=== PATIENT | male | born 1980 | race Caucasian/White ===

== ENCOUNTER 2024-10-06 10:52 | Emergency (ER) | payer OTHER, SELFPAY ==
--- OUTSIDE RECORDS SUMMARY | 2024-10-06 10:55 | XMS_ITS | Clinical Summary ---
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 Medications mirtazapine (REMERON) 15 mg tabletIndicatio ns:Anxiety and depression Take 1 Tablet (15 mg) by mouth at bedtime. 90 Tablet 1 4 Active sertraline (ZOLOFT) 100 mg tabletIndicatio ns:Anxiety and depression Take 1 Tablet (100 mg) by mouth once daily in the morning. 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 11/16/2014 07/02/2022 Insomnia 11/16/2014 07/02/2022 Marital stress 10/14/2014 06/22/2016 Rectal bleeding 04/10/2013 07/02/2022 Overview (04/10/2013): Colonoscopy 03/2013 normal repeat at age 49 Encounters Date Type Department Care Team Description 09/02/2024 3:05 PM CDT Office Visit [facility] [address] [place] [address] Robbie Villatoro MD Physical (43 Year Old ) 09/02/2024 Travel from Last 3 Months Immunizations Immunization Administration Dates Next Due COVID-19 vaccine (extraTKT NTech 30mcg/0.3mL) PFMDV 04/13/2021 Influenza, High-dose Inactivated 02/06/2014 Influenza, IIV4 04/13/2021, 0,02/01/2014,2012 Tdap 07/02/2022,02/09/2012 Family History Medical History Relation Name Comments Genetic Child 3 out of 4 kids w John syndrome, gonadal mosaicism Cancer-pancreatic Father at ag e 70. Ulcerative colitis Maternal Grandfather Bone cancer Maternal Grandmother Anesthesia Problem Neg. Lung cancer Paternal Grandmother smoker, at 69 Cancer-colon No Family History Cancer-prostate No Family History Diabetes No Family History Heart attack No Family History Relation Name Status Comments Child Father Maternal Grandfather Maternal Grandmother Neg. Paternal Grandmother Social History Tobacco Use Types Packs/Day Years Used Date Smoking Tobacco: Never Smokeless Tobacco: Never Tobacco Cessation:Counseling Given: No Alcohol Use Standard Drinks/Week Comments Yes 0 (1 standard drink = 0.6 oz pur e alcohol) occasional PHQ-2 Answer Date Recorded PHQ-2 TOTAL SCORE 2 01/10/2024 Social Connections Answer Date Recorded Do you often feel lonely or isolated from those around you? 0 01/10/2024 Financial Resource Strain Answer Date R ecorded Difficulty of Paying Living Expenses 3 01/10/2024 Difficulty of Paying Living Expenses Not on file 01/10/2024 Food Insecurity Answer Date Recorded Do you worry your food will run out before you are able to buy more? 1 01/10/2024 Transportation Needs Answer Date Record ed Does lack of transportation keep you from medica l appointments? 1 01/10/2024 Does lack of transportation keep you from work, meetings or getting things that you need? 1 01/10/2024 Housing Stability Answer Date Recorded What is your housing situation today? 1 01/10/2024 Utilities Answer Date Recorded Do you have trouble paying f or utilities (for example, heat, electricity, water, phone)? 1 01/10/2024 Sex and Gender Information Value Date Recorded Sex Assigned at Not on file Legal Sex Male 8:42 AM [employer]PER[employer] Gender Identity Not on file Sexual Orientation Not on file Occupation Industry Job Start Date Job End Date Not on file Not on file Not on file Not on file Obstetrics History Last Filed Vital Signs Vital Sign Reading Time Taken Comments Blood Pressure 120/79 09/02/2024 3:11 PM CDT Pulse 76 09/02/2024 3:11 PM CDT Temperature 36.9 C (98.4 F) 07/01/2023 9:37 AM CDT Respiratory Rate 21 07/01/2023 9:37 AM CDT Oxygen Saturation 95% 09/02/2024 3:11 PM CDT Inhaled Oxygen Concentration - - Weight 140.6 kg (310 lb) 09/02/2024 3:11 PM CDT Height 191 cm (6' 3.2) 09/02/2024 3:11 PM CDT Body Mass Index 38.54 09/02/2024 3:11 PM CDT Plan of Treatment Health Maintenance Due Date Last Done Comments Hepatitis B series for 19+ (1 of 3 - 19+ 3-dose series) 12/10/1998 COVID-19 vaccine series ( season) 2023 04/13/2021, 06/22/2020, 06/03/2020 Influenza Vaccine (#1) 2024 , 03/01/2020, 02/06/2014, Additional history exists Depression screening for age 12+ 01/09/2025 01/10/2024, 05/31/2023, 11/08/2022, Additional history exists BMI (ht and wt on same day) for age 18+ 09/02/2025 09/02/2024, 07/01/2023, 09/26/2022, Additional history exists Lipids for age 35-44 09/02/2029 09/02/2024, 04/13/2021, 10/19/2016 Tetanus booster 07/02/2032 07/02/2022, 02/09/2012 HIV for age 15-65 Completed 07/02/2022 Hepatitis C screening for age 18-79 Completed 07/02/2022 Pneumococcal series for age 6-49 Aged Out No longer eligible based on patient's age to complete this topic Procedures Procedure Name Priority Date/Time Associated Diagnosis Comments HEMOGLOBIN A1C Routine 09/02/2024 4:34 PM CDT Routine physical examination Diabetes mellitus screening LIPID PANEL Routine 09/02/2024 4:34 PM CDT Routine physical examination Screening cholesterol level LC HIV-1/O/2, 4TH GENERATION Routine 07/02/2022 4:11 PM CDT Encounter for screening for HIV LC HCV ANTIBODY RFX TO QUANT PCR Routine 07/02/2022 4:11 PM CDT Need for hepatitis C screening test from Last 3 Months or Most Recently Relevant to Health Maintenance Results * (ABNORMAL) HEMOGLOBIN A1C (09/02/2024 4:34 PM CDT) HEMOGLOBIN A1C 5.8(H) <5.7 % [facility] Comment: For someone without known diabetes, a hemoglobin A1c value between 5.7% and 6.4% is consistent with prediabetes and should be confirmed with a follow-up test. For someone with known diabetes, a value <7% indicates that their diabetes is well controlled. A1c targets should be individualized based on duration of diabetes, age, comorbid conditions, and other considerations. This assay result is consistent with an increased risk of diabetes. Currently, no consensus exists regarding use of hemoglobin A1c for diagnosis of diabetes for children. Blood BLOOD SPECIMEN / Unknown 09/02/2024 4:34 PM CDT 09/02/2024 4:35 PM CDT us Robbie Villatoro MD CHEMISTRY Final Result [employer] [address] [place] [address], [facility] [address] [place] [address] * (ABNORMAL) LIPID PANEL (09/02/2024 4:34 PM CDT) [facility] Signature CHOLESTEROL, TOTAL 197 <200 mg/dL [facility] HDL CHOLESTEROL 33(L) > OR = 40 mg/dL [place] [facility] TRIGLYCERIDES 276(H) <150 mg/dL [place] [facility] Comment: If a non-fasting specimen was collected, consider repeat triglyceride testing on a fasting specimen if clinically indicated. Teo et al. J. of Clin. Lipidol. 2015;9:129-169. LDL-CHOLESTEROL 122(H) mg/dL (calc) [place] [facility] Comment: Reference range: <100 Desirable range <100 mg/dL for primary prevention; <70 mg/dL for patients with CHD or diabetic patients with > or = 2 CHD risk factors. LDL-C is now calculated using the Sudheer-Tobar calculation, which is a validated novel method providing better accuracy than the Friedewald equation in the estimation of LDL-C. Sudheer SS et al. LALA. 2013;310(19): 6612-2584 (http://education.LeadGenius/faq/WJJ215) CHOL/HDLC RATIO 6.0(H) <5.0 (calc) [place] [facility] NON HDL CHOLESTEROL 164(H) <130 mg/dL (calc) [place] [facility] Comment: For patients with diabetes plus 1 major ASCVD risk factor, treating to a non-HDL-C goal of <100 mg/dL (LDL-C of <70 mg/dL) is considered a therapeutic option. Blood BLOOD SPECIMEN / Unknown 09/02/2024 4:34 PM CDT 09/02/2024 4:35 PM CDT Robbie Villatoro MD CHEMISTRY Final Result [employer] [facility] [address] [place] [address], [employer] [facility] [address] [place] [address] * LC HCV ANTIBODY RFX TO QUANT PCR (07/02/2022 4:11 PM CDT) HCV Ab Non Reactive Non Reactive 07/05/2022 10:07 PM CDT [facility] ([facility]) Blood BLOOD SPECIMEN / Unknown Venipuncture / Unknown 07/02/2022 4:11 PM CDT 07/02/2022 4:12 PM CDT [facility] ([facility]) - 07/05/2022 10:07 PM CDT Performed at: [address] [place] [id number] [employer]: Jorge Hagen MD, Phone: [phone] Ivan Kearney MD LABORATORY Final Result [facility] ([facility]) [address] [place] [id number], * LC HIV-1/O/2, 4TH GENERATION (07/02/2022 4:11 PM CDT) Pathologist [facility] HIV Scr 4th Gen Non Reactive Non Reactive 07/05/2022 3:09 PM CDT [facility] ([facility]) Comment: HIV Negative HIV-1/HIV-2 antibodies and HIV-1 p24 antigen were NOT detected. There is no laboratory evidence of HIV infection. Blood BLOOD SPECIMEN / Unknown Venipuncture / Unknown 07/02/2022 4:11 PM CDT 07/02/2022 4:12 PM CDT [facility] ([facility]) - 07/05/2022 3:09 PM CDT Performed at: [facility] [employer] [place], [place] [id number] Buddhist Monk: Jorge Hagen MD, Phone: [phone] us Ivan Kearney MD LABORATORY Final Result [facility] ([facility]) [address] [place] [id number], [place] from Last 3 Months or Most Recently Relevant to Health Maintenance Insurance [facility] [employer] [place] [id number] [id number] [place] [id number] Care Teams Hoop Coiling Machine Operator Relationship Specialty Start Date End Date Ivan Kearney MD [address] [place] [address] PCP - General Family Practice 12/29/12
[2024-10-06 10:58] VITALS: BP 142/88; PULSE 67; RESP 18; TEMP 36.9; O2SAT 96; BMI 38.7
--- NOTE | 2024-10-06 11:25 | CRLHL7_ITS ---
For Patients: As a result of the Cures Act, medical imaging exams and procedure reports are released immediately into your electronic medical record. You may view this report before your referring provider. If you have questions, please contact your health care provider. INDICATION: : Chest pain COMPARISON: Chest radiograph on September 20, 2024 TECHNIQUE: Two view(s) of the chest FINDINGS: The cardiomediastinal silhouette and pulmonary vasculature are unremarkable. There is no focal airspace consolidation, pleural effusion, or pneumothorax. No acute fracture or malalignment. Similar-appearing dextroscoliotic curvature of the upper thoracic spine. IMPRESSION: No acute cardiopulmonary process. Dictated by Jaspal Snyder MD @ 10/06/2024 12:03:49 PM (Electronically Signed)
[2024-10-06 11:42] LABS: Lactate* 0.8 mmol/L (0.5-1.9)
[2024-10-06 11:46] LABS: Hematocrit* 47.2 % (37.0-53.0); Hemoglobin* 16.2 gm/dL (13.5-17.5); Immature Granulocytes Abs Auto 0.02 K/uL (0.00-0.30); Immature Granulocytes Pct Auto 0.3 %; Lymphocytes Absolute Auto 2.05 K/uL (0.90-2.90); Mean Corpuscular HGB Conc 34 gm/dL (32-36); Mean Corpuscular Hemoglobin 31 pg (26-34); Mean Corpuscular Volume 90 fL (80-100); RDW Coefficient of Variation % 11.8 % (11.5-15.5); Red Blood Count* 5.26 m/uL (4.30-5.90); White Blood Count* 7.59 K/uL (4.50-11.00)
--- NOTE | 2024-10-06 11:47 | ED.GENADULT ---
HPI - General Adult General Chief complaint: Chest Pain Stated complaint: chest tightness Time Seen by Provider: 10/06/24 11:13 Source: patient Mode of arrival: ambulatory Limitations: no limitations History of Present Illness HPI narrative: 43-year-old male presenting today with central chest pain that was present when he woke up. He noticed it more when he went to work. He denies shortness of breath, cough, diaphoresis or dizziness. Patient states that approximately a week ago he fell and hit his right lower chest on a climbing wall and has had difficult time moving for the last week. He states he recently healed up and started moving in. He denies fever. He says that taking a deep breath makes the pain worse, nothing makes it better. He denies tobacco use or vaping. Maternal grandfather had an CT prior to the age of 65. He denies any personal or family history of blood clots. No recent surgery or traveling. Related Data Home Medications ?Medication ?Instructions ?Recorded ?Confirmed mirtazapine 15 mg tablet 15 mg PO QPM 09/20/24 10/06/24 sertraline 100 mg tablet 100 mg PO DAILY 09/20/24 10/06/24 Allergies Allergy/AdvReac Type Severity Reaction Status Date / Time No Known Drug Allergies Allergy Verified 10/06/24 11:03 Review of Systems Status of ROS: Reports: 10 or more systems reviewed and unremarkable except as noted in History and below [facility] Social History Smoking Status: Never smoker Do you use any of these nicotine containing products: None Second hand tobacco smoke exposure: No How often do you have a drink containing alcohol: monthly or less AUDIT-C Alcohol total score: 1 Non-prescribed substance use: denies use Exam Narrative: Exam Narrative: Well-nourished well-developed patient in no acute distress. Alert and oriented. Answers questions appropriately. Mood and affect are appropriate. Thoughts are goal oriented and rational. No tangential or magical thinking noted. Patient speaks in full sentences without needing to catch his breath. HEENT: Normocephalic atraumatic. Pupils are equally round reactive to light. Extraocular muscles are intact. Conjunctivae are moist without any icterus noted. Moist mucous membranes. Posterior pharynx is normal. Neck is soft without pain. Cardiovascular: Heart is regular rate and rhythm S1 and S2 are present without any murmurs. Lungs: Clear to auscultation bilaterally no wheezes rhonchi or rales are appreciated. Patient takes deep breaths without any significant discomfort. Mild tenderness to palpation of the sternum. Abdomen: Soft and nontender nondistended with normal bowel sounds. No guarding or rebound. Difficult to assess for organomegaly secondary to body habitus. Extremities: Bilateral lower extremities are without edema. Skin: Well perfused without any obvious rashes. Const: Vital Signs, click to edit/add: Vital Signs - 24 hr 10/06/24 10:58 10/06/24 11:54 Temperature 98.4 F Pulse Rate [Right Pulse Oximeter] 67 62 Respiratory Rate 18 16 Blood Pressure [Ri ght Upper Arm] 142/88 H 132/89 Pulse Oximetry 96 95 Oxygen Delivery Me thod Room Air Room Air Course Course ED Course: EKG, read by me, shows normal sinus rhythm with a pulse of 63. Chest x-ray, read by me, does not show any acute pathology. Workup was unremarkable. Vital Signs Vital signs: Initial Vital Signs Temperature 98.4 F 10/06/24 10:58 Temperature Source Temporal Artery Scan 10/06/24 10:58 Pulse Rate 67 10/06/24 10:58 Pulse Rhythm Regular 10/06/24 10:58 Pulse Strength 3+ Normal 10/06/24 10:58 Respiratory Rate 18 10/06/24 10:58 Blood Pressure 142/88 H 10/06/24 10:58 Blood Pressure Mean 106 H 10/06/24 10:58 Blood Pressure Position Sitting 10/06/24 10:58 Pulse Oximetry 96 10/06/24 10:58 Oxygen Delivery Method Room Air 10/06/24 10:58 Vital Signs Temperature 98.4 F 10/06/24 10:58 Pulse Rate 67 10/06/24 10:58 Respiratory Rate 18 10/06/24 10:58 Blood Pressure 142/88 H 10/06/24 10:58 Pulse Oximetry 96 10/06/24 10:58 Oxygen Delivery Method Room Air 10/06/24 10:58 Temperature 98.4 F 10/06/24 10:58 Pulse Rate 62 10/06/24 11:54 Respiratory Rate 16 10/06/24 11:54 Blood Pressure 132/89 10/06/24 11:54 Pulse Oximetry 95 10/06/24 11:54 Oxygen Delivery Method Room Air 10/06/24 11:54 Medical Decision Making MDM Narrative Medical decision making narrative: 43-year-old male with chest discomfort, likely musculoskeletal in nature given his symptoms, history and physical. I do not think a repeat troponin is necessary as I do not think that his symptoms can institute an acute coronary syndrome and it has been approximately 6 hours since his symptoms started. Lab Data Lab results reviewed: Yes I reviewed the patient's lab results Labs: Lab Results 10/06/24 10/06/24 Range/Units 11: 11:35 WBC 7.59 (4.50-11.00) K/uL RBC 5.26 (4.30-5.90) m/uL Hgb 16.2 (13.5-17.5) gm/dL Hct 47.2 (37.0-53.0) % MCV 90 (80-100) fL MCH 31 (26-34) pg MCHC 34 (32-36) gm/dL RDW Coeff of Paolo 11.8 (11.5-15.5) % Plt Count 231 (140-440) K/uL Neut % (Auto) 64.0 (42.0-72.0) % Lymph % (Auto) 27.0 (20-44) % [place]kin % (Auto) 7.2 (0.0-11.0) % Eos % (Auto) 1.1 (0.0-7.0) % Baso % (Auto) 0.4 (0.0-3.0) % Neut # (Auto) 4.86 (1.7-7.0) K/uL Lymph # (Auto) 2.05 (0.90-2.90) K/uL [place]kin # (Auto) 0.50 (0.00-0.90) K/UL Eos # (Auto) 0.08 (0.00-0.50) K/uL Baso # (Auto) 0.03 (0.00-0.30) K/uL Abs Immat Gran (auto) 0.02 (0.00-0.30) K/uL Imm/Tot Granulo (auto) 0.3 % Sodium 137 (135-149) mmol/L Potassium 4.4 (3.6-5.1) mmol/L Chloride 103 (96-114) mmol/L Carbon Dioxide 30 (20-32) mmol/L Anion Gap 4 L (7-15) mEq/L BUN 13 (5-24) mg/dL Creatinine 0.9 (0.5-1.5) mg/dL Estimated Creat Clear 125.19 Estimated GFR 108 ml/min Glucose 98 (60-115) mg/dL Lactate 0.8 (0.5-1.9) mmol/L Calcium 9.5 (8.4-10.6) mg/dL Total Bilirubin 0.4 (0.1-1.5) mg/dL Direct Bilirubin 0.1 (0.0-0.5) mg/dL AST 39 H (12-35) U/L ALT 40 (4-50) U/L Alkaline Phosphatase 70 (40-150) U/L Troponin I < 0.01 (0.01-0.04) ng/mL C-Reactive Protein < 0.5 L (0.5-1.0) mg/dL Total Protein 7.2 (6.0-8.3) g/dL Albumin 4.5 (3.3-5.0) g/dL Lipase 118 (23-300) U/L POC Troponin I 0.00 L (0.01-0.04) ng/ml Imaging Data Chest x-ray: Attestation: I have reviewed the pertinent imaging results. Radiologist's impression: TECHNIQUE: Two view(s) of the chest FINDINGS: The cardiomediastinal silhouette and pulmonary vasculature are unremarkable. There is no focal airspace consolidation, pleural effusion, or pneumothorax. No acute fracture or malalignment. Similar-appearing dextroscoliotic curvature of the upper thoracic spine. IMPRESSION: No acute cardiopulmonary process. ECG Data Attestation: I personally reviewed and interpreted this ECG as follows: Discharge Plan Discharge Clinical Impression: Atypical chest pain Patient Disposition: Home, Self-Care Condition: Stable Additional Instructions: Recommend ibuprofen or Tylenol as needed/as directed for discomfort, gentle stretching. Can also use heat to the chest wall, do not use for more than 20 minutes at a time and do not apply heat directly to the skin. Follow-up with your primary care provider as needed. Prescriptions: No Action sertraline 100 mg tablet 100 mg PO DAILY mirtazapine 15 mg tablet 15 mg PO QPM Follow Up/Referrals: Ivan Kearney MD [Primary Care Provider, Family Practice] Stand Alone Forms: [employer] Info Instructions
[2024-10-06 11:49] LABS: Slide Review Reflex No
[2024-10-06 11:54] VITALS: BP 132/89; PULSE 62; RESP 16; O2SAT 95
[2024-10-06 11:54] LABS: Troponin, Point-of-Care* 0.00 ng/ml (0.01-0.04)
[2024-10-06 11:57] LABS: Albumin* 4.5 g/dL (3.3-5.0); Chloride* 103 mmol/L (96-114)
[2024-10-06 11:58] LABS: Potassium* 4.4 mmol/L (3.6-5.1); Sodium* 137 mmol/L (135-149)
[2024-10-06 12:00] LABS: Blood Urea Nitrogen* 13 mg/dL (5-24); Creatinine* 0.9 mg/dL (0.5-1.5); Est. Creatinine Clearance* 125.19; Estimated Glomerular Filt Rate 108 ml/min
[2024-10-06 12:01] LABS: Alanine Aminotransferase* 40 U/L (4-50); Alkaline Phosphatase* 70 U/L (40-150); Anion Gap 4 mEq/L (7-15); Aspartate Amino Transferase* 39 U/L (12-35); Bilirubin Direct* 0.1 mg/dL (0.0-0.5); Bilirubin Total* 0.4 mg/dL (0.1-1.5); Calcium* 9.5 mg/dL (8.4-10.6); Carbon Dioxide* 30 mmol/L (20-32); Glucose* 98 mg/dL (60-115); Total Protein* 7.2 g/dL (6.0-8.3)
== END 2024-10-06 12:30 | disposition home or self-care (01) ==
PROVIDERS: Emergency Provider Family Medicine; PCP Family Medicine
DX: R07.9 Chest pain, unspecified (principal)
CPT/HCPCS: 36415; 71046; 80048; 80076; 83605; 83690; 84484; 85025; 86140; 99284